=== PATIENT | male | born 1975 | race African-American/Black ===

== ENCOUNTER 2017-09-04 10:15 | Emergency (ER) | payer OTHER ==
[~2017-09-04] VITALS: Ht 190.5 cm; Wt 113.4 kg
--- NOTE | 2017-09-04 10:37 | ED CARDIAC/CP/PALPITATIONS ---
History of Present Illness General Chief Complaint: Chest Pain Stated Complaint: SENT BY DR FOR CHEST PAIN Source: patient Exam Limitations: no limitations Vital Signs & Intake/Output Vital Signs & Intake/Output Vital Signs Date Time Temp Pulse Resp B/P B/P Pulse O2 O2 Flow FiO2 Mean Ox Delivery Rate 09/04 1137 Room Air Room Air 09/04 1024 97.5 73 20 127/80 97 Room Air Allergies Coded Allergies: NO KNOWN ALLERGIES (02/10/11) Triage Note: PT TO ED C/O MID STERNAL C/P X 1 WEEK. "I DON'T KNOW IF IT'S REFLUX". DENIES N/V/D. PAIN IS CURRENTLY 2/10. EKG IN PROGRESS. Triage Nurses Notes Reviewed? yes Onset: Abrupt Duration: week(s): (1) Timing: recent history Location: central, epigastric Aspirin Today: no aspirin today Associated Symptoms: denies HPI: This is a 42 year old male with history of HTN, DM and dyslipidemia who presents to the ER for chief complaint of midsternal chest pain for the past week. He has a history of reflux but is not sure what the pain is from. The pain has been constant. Currently his discomfort is 2/10. No shortness of breath, palpitations, cough, fever, chills, nausea, vomiting or diarrhea. He wanted to make sure he got checked out to make sure it wasn't his heart but also would like to have 'everything' checked including HIV status for recent unprotected intercourse. Positive family history of CAD and CVA. Past History Travel History Traveled to [place] past 21 day No Medical History Any Pertinent Medical History? see below for history Cardiovascular: hypertension, hyperlipidemia Endocrine: diabetes Surgical History Surgical History: non-contributory Psychosocial History What is your primary language R[place]an Tobacco Use: Never used ETOH Use: denies use Illicit Drug Use: denies illicit drug use Family History Comment: MOTHER AND SISTER WITH CVA BROTHER WITH CARDIAC STENTS AT 49 Hx Contributory? Yes Review of Systems Review of Systems Constitutional: Denies: chills, fever. EENTM: Reports: no symptoms. Respiratory: Denies: cough, short of breath, sputum production. Cardiovascular: Reports: chest pain. GI: Denies: abdominal pain. Genitourinary: Reports: no symptoms. Musculoskeletal: Reports: no symptoms. Skin: Reports: no symptoms. Neurological/Psychological: Reports: no symptoms. Hematologic/Endocrine: Denies: bruising, bleeding, polyuria, polydipsia. Immunologic/Allergic: Denies: splenectomy. All Other Systems: Reviewed and Negative Physical Exam Physical Exam General Appearance: well developed/nourished, no apparent distress, alert, awake , anxious, mild distress Head: atraumatic, normal appearance Eyes: Bilateral: normal appearance, PERRL, EOMI. Ears, Nose, Throat: normal pharynx, hearing grossly normal, abnormal Tympanic (R ) Neck: normal inspection, supple, full range of motion Respiratory: normal breath sounds, no respiratory distress, CHEST WALL TENDERNESS Cardiovascular: regular rate/rhythm, normal peripheral pulses Peripheral Pulses: 2+ radial (R), 2+ radial (L) Gastrointestinal: normal bowel sounds, soft, non-tender Extremities: normal inspection, normal capillary refill, normal range of motion, no edema Neurologic/Psych: no motor/sensory deficits, awake, alert, oriented x 3 Skin: intact, normal color, warm/dry Core Measures ACS in differential dx? Yes CVA/TIA Diagnosis No Sepsis Present: No Sepsis Focused Exam Completed? No Progress Differential Diagnosis: AMI, aortic dissection, costochondritis, hyperkalemia, musculoskeletal pain, myocarditis, pancreatitis, pericarditis, pneumothorax Plan of Care: Orders Procedure Date/time Status XRY-CHEST XRAY, TWO VIEWS 09/04 1232 Active Telemetry/Fur Repairer 09/04 1054 Active TROPONIN LEVEL 09/04 1053 Active PARTIAL THROMBOPLASTIN TIME 09/04 1053 Complete PROTHROMBIN TIME 09/04 1053 Complete LIPID PANEL 09/04 1053 Active HIV (Reflex to HIVCQ) 09/04 1053 Active GLYCOSYLATED HGB 09/04 1053 Active D-DIMER 09/04 1053 Complete COMPREHENSIVE METABOLIC PANEL 09/04 1053 Active CBC WITHOUT DIFFERENTIAL 09/04 1053 Complete EKG 09/04 1017 Active Laboratory Tests 09/04/17 1107: Anion Gap 12, Estimated GFR > 60, BUN/Creatinine Ratio 21.1, Glucose 107 H, Hemoglobin A1c Pending, Calcium 9.4, Total Bilirubin 0.6, AST 20, ALT 41, Alkaline Phosphatase 61, Troponin I < 0.01, Total Protein 7.5, Albumin 4.2, Globulin 3.3, Albumin/Globulin Ratio 1.3, Triglycerides 39, Cholesterol 163, LDL Cholesterol, Calc 105, HDL Cholesterol 51, Cholesterol/HDL Ratio 3, PT 12.4, INR 1.18 H, APTT 34, D-Dimer High Sensitivty < 200, CBC w Diff NO MAN DIFF REQ, RBC 5.68, MCV 80.1, MCH 25.1 L, RDW 14.8 H, MPV 7.8, Gran % 45.0, Lymphocytes % 44.0, Monocytes % 7.8, Eosinophils % 2.5, Basophils % 0.7, Absolute Granulocytes 3.0, Absolute Lymphocytes 3.0, Absolute Monocytes 0.5, Absolute Eosinophils 0.2, Absolute Basophils 0, PUBS MCHC 31.4 L, HIV 1&2 Ab Western Blot NONREACTIVE EKG, TELE MONITOR, CXR, LABS ORDERED. results d/w patient. He will follow up with his primary care doctor as well as with cardiology for stress testing secondary to personal and family history. Diagnostic Imaging: Viewed by Me: Radiology Read. Discussed w/RAD: Radiology Read. Initial ED EKG: NSR Rhythm Strip: normal sinus rhythm Comments: PATIENT: VIJAY WOO PRESENT AGE: 42 PATIENT ACCOUNT NO: [id number] : 73 LOCATION: [facility] ORDERING PHYSICIAN: Melody Pack MD SERVICE DATE: 09/04/17 EXAM TYPE: RAD - XRY-CHEST XRAY, TWO VIEWS EXAMINATION: XR CHEST CLINICAL INFORMATION: Chest pain COMPARISON: 11/15/2008 TECHNIQUE: 2 views of the chest were obtained. FINDINGS: The lungs are well-inflated and clear with exception of a small linear opacity of focal scarring in the left lateral base. Trachea is midline in position. No evidence of interstitial lung disease, focal consolidation, mass or pleural effusion. The cardiomediastinal silhouette and hilar structures have normal size and contour. The visualized bones are normal. The examined upper abdomen is unremarkable. IMPRESSION: No acute pulmonary disease. DICTATED BY: David Tang MD DATE/TIME DICTATED:09/04/171337 FLAT [employer]ICAL ELEMENT MAKER:KATHRIN DATE/TIME TRANSCRIBED:09/04/171337 CONFIDENTIAL, DO NOT COPY WITHOUT APPROPRIATE AUTHORIZATION. <Electronically signed in Other Vendor System> SIGNED BY: David Tang MD 09/04/17 1343 Departure Departure Time of Disposition: 1328 Disposition: HOME OR SELF CARE Condition: Stable Clinical Impression Primary Impression: Atypical chest pain Referrals: Jairon Love MD (PCP/Family) Renetta Damico MD Additional Instructions: FOLLOW UP WITH YOUR DOCTOR AND THE STRAP MACHINE OPERATOR AUTOMATIC LISTED FOR FURTHER TESTING RETURN TO THE ER FOR ANY CHANGING OR WORSENING SYMPTOMS Departure Forms: Customer Survey General Discharge Information Critical Care Note Critical Care Note Critical Care Time: non-applicable
[2017-09-04 11:49] LABS: ABSOLUTE BASOPHIL COUNT 0 /CUMM (0.0-0.2); ABSOLUTE EOSINOPHIL COUNT 0.2 /CUMM (0.0-0.7); ABSOLUTE MONOCYTE COUNT 0.5 /CUMM (0.10-0.60); BASOPHIL % 0.7 % (0.0-2.0); EOSINOPHIL % 2.5 % (0-5); HEMATOCRIT 45.5 % (42-52); MEAN CORPUSCULAR HGB 25.1 PG (27.0-31.0); MEAN CORPUSCULAR HGB CONC 31.4 G/DL (33.0-37.0); MEAN CORPUSCULAR VOLUME 80.1 FL (80.0-94.0); MEAN PLATELET VOLUME 7.8 FL (7.4-10.4); PLATELET COUNT 261 /CUMM (130-400); PT 12.4 SEC (9.4-12.5); PTT 34 SEC (25-37); RBC DISTRIBUTION WIDTH 14.8 % (11.5-14.5); RED BLOOD CELL CT 5.68 /CUMM (4.70-6.10); WHITE BLOOD CELL COUNT 6.7 /CUMM (4.8-10.8)
[2017-09-04 13:33] VITALS: BP 143/98
--- NOTE | 2017-09-04 13:43 | RADIOLOGY REPORT ---
EXAMINATION: XR CHEST CLINICAL INFORMATION: Chest pain COMPARISON: 11/15/2008 TECHNIQUE: 2 views of the chest were obtained. FINDINGS: The lungs are well-inflated and clear with exception of a small linear opacity of focal scarring in the left lateral base. Trachea is midline in position. No evidence of interstitial lung disease, focal consolidation, mass or pleural effusion. The cardiomediastinal silhouette and hilar structures have normal size and contour. The visualized bones are normal. The examined upper abdomen is unremarkable. IMPRESSION: No acute pulmonary disease.
== END 2017-09-04 13:48 ==
LOC: ERH 10:15
PROVIDERS: Emergency Medicine
DX: R07.89 Other chest pain (principal)
CPT/HCPCS: 71046; 87389; 93005; 93010